=== PATIENT | female | born 1990 | race Two or more races ===

== ENCOUNTER 2022-10-26 21:04 | Emergency (ER) | payer MEDICAID ==
[~2022-10-26] VITALS: Ht 162.6 cm; Wt 109.0 kg
[2022-10-26 23:06] VITALS: BP 127/77
[2022-10-27] MEDS ORDERED: LIDOCAINE 2%HCL (LOCAL ANESTH.) INJ 10ml MDV IJ ONE (00:30)
[2022-10-27] MEDS ORDERED: LIDOCAINE HCL (LOCAL ANESTH.) 0.5 % 50ML MDV IJ ONE (00:30)
[2022-10-27] MEDS ORDERED: LIDOCAINE 1% HCL (LOCAL ANESTH.) INJ 20ML MDV ONE (00:30)
== END 2022-10-27 01:12 | disposition home or self-care (01) ==
LOC: ER 21:04
DX: S61.411A Laceration without foreign body of right hand, initial encounter (principal); W45.8XXA Other foreign body or object entering through skin, initial encounter; Y93.89 Activity, other specified; Y92.89 Other specified places as the place of occurrence of the external cause; Y99.8 Other external cause status
CPT/HCPCS: 12001; 99282; J2001

== ENCOUNTER 2025-04-27 17:31 | Inpatient (IN) | payer MEDICAID ==
[~2025-04-27] VITALS: Ht 162.6 cm; Wt 113.1 kg
--- NOTE | 2025-04-27 18:05 | ED.PDOC ---
GI ASSESSMENT HPI Comments 34-year-old female who comes in with chief complaint of chest pain and abdominal pain. The patient states that the pain is in the epigastric region is started this morning. The pain seems to radiate towards the back and states that the pain is a 10/10. The patient tried going to work and states that the symptoms were so significant so she came to the emergency department's for evaluation. The patient denies any vomiting but is having some nausea. Chief Complaint: Chest Pain Time Seen by MD: 17:32 Reviewed Notes: Nurses Notes, Medications, Allergies (Allergies listed above) Allergies: Coded Allergies: Acetaminophen (Verified Allergy, Unknown, 04/27/25) Hydrocodone (Verified Allergy, Unknown, 04/27/25) Penicillins (Verified Allergy, Unknown, 04/27/25) Information Source: Patient Mode of Arrival: Ambulatory Timing: Hours (Symptoms started this morning) Duration: Since onset Prehospital treatment: None Quality: Cramping, Sharp Vomitus: Bilious, None Stool: Normal Severity: Moderate Recent: None Recent Hx of: None Pain Location: Epigastric Modifying Factors: Nothing Associated sign and symptoms: Nausea, Abdominal Pain Past Medical History PAST MEDICAL HISTORY: Denies Surgical History (Other): Left breast tumor removal MOLD SWABBER History: No Pertinent MOLD SWABBER History Family History Family History: Reviewed,noncontributory to illness Social History Smoker: Non-Smoker Alcohol: Occasionally Drugs: Denies Drug Use Lives In: Home Constitutional: denies: chills, diaphoresis, fatigue, fever, malaise, sweats, weakness, others EENTM: denies: blurred vision, double vision, ear bleeding, ear discharge, ear drainage, ear pain, ear ringing, eye pain, eye redness, hearing loss, mouth pain, mouth swelling, nasal discharge, nose bleeding, nose congestion, nose pain, photophobia, tearing, throat pain, throat swelling, voice changes, others Respiratory: denies: cough, hemoptysis, orthopnea, SOB at rest, shortness of breath, SOB with excertion, stridor, wheezing, others Cardiovascular: denies: chest pain, dizzy spells, diaphoresis, Dyspnea on exertion, edema, irregular heart beat, left arm pain, lightheadedness, palpitations, PND, syncope, others Gastrointestinal: reports: abdominal pain, nausea; denies: abdomen distended, blood streaked bowels, constipated, diarrhea, dysphagia, difficulty swallowing, hematemesis, melena, poor appetite, poor fluid intake, rectal bleeding, rectal pain, vomiting, others Genitourinary: denies: abnormal vagina bleeding, burning, dyspareunia, dysuria, flank pain, frequency, hematuria, incontinence, pain, , vagina discharge, urgency, others Neurological: denies: dizziness, fainting, headache, left sided numbness, left sided weakness, numbness, paresthesia, pre-existing deficit, right sided numbness, right sided weakness, seizure, speech problems, tingling, tremors, weakness, others Musculoskeletal: denies: back pain, gout, joint pain, joint swelling, muscle pain, muscle stiffness, neck pain, others Integumetry: denies: bruises, change in color, change in hair/nails, dryness, laceration, lesions, lumps, rash, wounds, others Allergic/Immunocompromised: denies: Difficulty Healing, Frequent Infections, Hives, Itching, others Hematologic/Lymphatic: denies: anemia, blood clots, easy bleeding, easy bruising, swollen glands, others Endocrine: denies: excessive hunger, excessive sweating, excessive thirst, excessive urination, flushing, intolerance to cold, intolerance to heat, unexplained weight gain, unexplained weight loss, others Psychiatric: denies: anxiety, bipolar disorder, depression, hopeless, panic disorder, schizophrenia, sleepless, suicidal, others Physical Exam General Appearance: Moderate Distress HEENT: Normal ENT Inspection, Pharynx Normal, TMs Normal Neck: Full Range of Motion, Non-Tender, Normal, Normal Inspection Respiratory: Chest Non-Tender, Lungs Clear, No Accessory Muscle Use, No Respiratory Distress, Normal Breath Sounds Cardiovascular: No Edema, No JVD, No Murmur, No Gallop, Normal Peripheral Pulses, Regular Rate/Rhythm Breast Exam: Deferred Gastrointestinal: Epigastric, No Organomegaly, No Pulsatile Mass, Normal Bowel Sounds, Soft, Tenderness Genitalia: Deferred Pelvic: Deferred Rectal: Deferred Extremities: No calf tenderness, Normal capillary refill, Normal inspection, Normal range of motion, Non-tender, No pedal edema Musculoskeletal : Apperance: Normal Neurologic: Alert, kennel manager dog track II-XII nml as Tested, No Motor Deficits, Normal Affect, Normal Mood, No Sensory Deficits Cerebellar Function: Normal Reflexes: Normal Skin: Dry, Normal Color, Warm Lymphatic: No Adenopathy Was a procedure done? Was a procedure done?: No GI differential Dx Differential Diagnosis: Appendicitis, Cholangitis, Cholecystitis, Gastritis/PUD, Gastroenteritis, Inflammatory BD, Ischemic Bowel, Pancreatitis, UTI X-Ray, Labs, Meds, VS Vital Signs Date Time Temp Pulse Resp B/P (MAP) Pulse Ox O2 Delivery O2 Flow Rate FiO2 04/27/25 18:37 83 04/27/25 18:24 88 17 133/91 04/27/25 17:41 98.2 88 17 133/91 98 98.2 04/27/25 17:38 82 Lab Test 04/27/25 18:08 Range/Units White Blood Count 10.7 4.4-10.8 10^3/uL Red Blood Count 4.98 4.0-5.20 10^6/uL Hemoglobin 14.5 12.2-16.2 g/dL Hematocrit 42.2 36.0-46.0 % Mean Corpuscular Volume 84.9 80.0-100.0 fL Mean Corpuscular Hemoglobin 29.1 28.0-32.0 pg Mean Corpuscular Hemoglobin Concent 34.3 32.0-36.0 g/dL Red Cell Distribution Width 14.6 H 11.8-14.3 % Platelet Count 274 140-450 10^3/uL Mean Platelet Volume 10.0 6.9-10.8 fL Neutrophils (%) (Auto) 73.7 37.0-80.0 % Lymphocytes (%) (Auto) 16.2 10.0-50.0 % Monocytes (%) (Auto) 7.9 0.0-12.0 % Eosinophils (%) (Auto) 1.6 0.0-7.0 % Basophils (%) (Auto) 0.6 0.0-2.0 % Neutrophils # (Auto) 7.9 1.6-8.6 10 ^3/uL Lymphocytes # (Auto) 1.7 0.4-5.4 10 ^3/uL Monocytes # (Auto) 0.8 0-1.3 10 ^3/uL Eosinophils # (Auto) 0.2 0-0.8 10 ^3/uL Basophils # (Auto) 0.1 0-0.2 10 ^3/uL Nucleated Red Blood Cells 0.1 % Sodium Level 140 136-145 mmol/L Potassium Level 4.1 3.5-5.1 mmol/L Chloride Level 106 98-107 mmol/L Carbon Dioxide Level 27 20-31 mmol/L Anion Gap 7 5-15 Blood Urea Nitrogen 12 9-23 mg/dL Creatinine 0.84 0.550-1.02 mg/dL Glomerular Filtration Rate Calc 94 >90 mL/min BUN/Creatinine Ratio 14.3 10.0-20.0 Serum Glucose 102 74-106 mg/dL Calcium Level 9.7 8.7-10.4 mg/dL Total Bilirubin 1.2 H 0.2-1.0 mg/dL Aspartate Amino Transferase (AST) 685 H 13-40 U/L Alanine Aminotransferase (ALT) 468 H 7-40 U/L Alkaline Phosphatase 116 46-116 U/L Total Protein 7.7 5.7-8.2 g/dL Albumin 4.8 3.2-4.8 g/dL Lipase 41 12-53 U/L Current Medications Medications (Trade) Dose Ordered Sig/Jose Route Start Time Stop Time Status Last Admin Ondansetron HCl (Zofran) 4 mg ONCE ONCE IV 04/27/25 18:00 04/27/25 18:01 DC 04/27/25 18:24 Sodium Chloride 1,000 ml @ 1,000 mls/hr Q1H ONCE IVB 04/27/25 18:00 04/27/25 18:59 04/27/25 18:24 Morphine Sulfate 4 mg ONCE ONCE IV 04/27/25 18:00 04/27/25 18:01 DC 04/27/25 18:24 Pantoprazole Sodium (Protonix) 40 mg ONCE ONCE IV 04/27/25 18:00 04/27/25 18:01 DC 04/27/25 18:24 IV Hep-Lock is being established The patient was given morphine 4 mg IV push for the pain The patient is given Zofran 4 mg IV push for the nausea The patient was given Protonix 40 mg IV push The patient is also being bolused with normal saline. An ultrasound of the gallbladder will show: IMPRESSION: Cholelithiasis with gallbladder wall thickening. This would be consistent with acute cholecystitis in the correct clinical setting. Diffusely echogenic liver parenchyma. This may be secondary to steatosis or another diffuse hepatic process. Correlate clinically and with liver function tests. The patient is now being admitted at this time Images Reviewed?: Images reviewed and evaluated by me Time of 1ST Reevaluation: 18:05 Reevaluation 1ST: Unchanged Patient Education/Counseling: Diagnosis, Treatment, Prognosis Family Education/Counseling: No Family Present SEPSIS Sepsis Screen Date sepsis recognized/suspect: Apr 27, 2025 Time Sepsis recognized/suspect: 1740 Recent Procedure: No On Antibiotic Therapy: No Respiratory Rate >20: No Heart Rate >90: No Temp<36 C (96.8 F) or >38.3 C: No SBP <90 or MAP <65 mmHG: No New Acute Mental Status Change: No Is the patient on CPAP, BIPAP,: No Physician Orders Urinalysis (04/27/25 17:59) Sodium Chloride 0.9% (04/27/25 18:00) Heplock Iv (04/27/25 17:59) Gallbladder (04/27/25 17:59) Test, Urine (04/27/25 17:59) Vital Signs Date Time Temp Pulse Resp B/P (MAP) Pulse Ox O2 Delivery O2 Flow Rate FiO2 04/27/25 18:37 83 04/27/25 18:24 88 17 133/91 04/27/25 17:41 98.2 88 17 133/91 98 98.2 04/27/25 17:38 82 Laboratory Tests Test 04/27/25 18:08 White Blood Count 10.7 10^3/uL (4.4-10.8) Medications Medications Dose Ordered Sig/Jose Route Start Time Stop Time Status Last Admin Dose Admin Morphine Sulfate 4 mg ONCE ONCE IV 04/27/25 18:00 04/27/25 18:01 DC 04/27/25 18:24 Ondansetron HCl 4 mg ONCE ONCE IV 04/27/25 18:00 04/27/25 18:01 DC 04/27/25 18:24 Pantoprazole Sodium 40 mg ONCE ONCE IV 04/27/25 18:00 04/27/25 18:01 DC 04/27/25 18:24 Sodium Chloride 1,000 ml @ 1,000 mls/hr Q1H ONCE IVB 04/27/25 18:00 04/27/25 18:59 04/27/25 18:24 Departure 1 Departure Time of Disposition: 18:57 Impression: Primary Impression: Acute cholecystitis Additional Impression: Intractable abdominal pain Disposition: 09 ADMITTED INPATIENT Admit to: Med Surg Condition: Fair Critical Care Note Critical Care Time?: No Stability Stability form required: Yes Unstable for transfer: ED Physician Assesment (Clinical assesment) Heart Score Heart Score: Heart Score Response (Comments) Value History N/A 0 EKG N/A 0 Age N/A 0 Risk Factors N/A 0 Troponin N/A 0 Total 0 PRIYA LAZO MD Apr 27, 2025 18:05
[2025-04-27] MEDS: MORPHINE SULFATE 4 MG/ML SYR/VIAL IV ONE (18:24)
[2025-04-27] MEDS: ONDANSETRON HCL 4 MG/2 ML VIAL IV ONE (18:24)
[2025-04-27] MEDS: PANTOPRAZOLE 40 MG/10 ML VIAL INJ IV ONE (18:24)
[2025-04-27] MEDS: SODIUM CHLORIDE 0.9% 1,000 ML IVB ONE (18:24)
[2025-04-27 18:25] LABS: Hematocrit 42.2 % (36.0-46.0); Hemoglobin 14.5 g/dL (12.2-16.2); Mean Corpuscular Hemoglobin 29.1 pg (28.0-32.0); Mean Corpuscular Volume 84.9 fL (80.0-100.0); Nucleated Red Blood Cells % 0.1 %
--- NOTE | 2025-04-27 18:40 | ECG ---
[facility] Test Date: 2025-04-27 Test Time: 17:38:11 Pat Name: MARIA VICTORIA GALLARDO Department: [facility] ED Room: [address] [place] [address] Gender: F Hospice Fellow: ana cristina : 1990 Requested By: PRIYA LAZO Order Number: [id number] Reading MD: Srikanth Payton Measurements Intervals [place] Rate: 82 P: 35 [place]: 170 QRS: 147 QRSD: 108 T: 22 QT: 370 QTc: 432 Interpretive Statements Sinus rhythm Right axis deviation Electronically Signed On 04-28-2025 17:54:02 PDT by Srikanth Payton Please click the below link to view image of tracing.
[2025-04-27 18:44] LABS: Albumin 4.8 g/dL (3.2-4.8); Alkaline Phosphatase 116 U/L (46-116); Anion Gap 7 (5-15); BUN/Creatinine Ratio 14.3 (10.0-20.0); Bilirubin, Total 1.2 mg/dL (0.2-1.0); Blood Urea Nitrogen 12 mg/dL (9-23); Calcium 9.7 mg/dL (8.7-10.4); Carbon Dioxide 27 mmol/L (20-31); Chloride 106 mmol/L (98-107); Glucose 102 mg/dL (74-106); Lipase 41 U/L (12-53); Potassium 4.1 mmol/L (3.5-5.1); Sodium 140 mmol/L (136-145); Total Protein 7.7 g/dL (5.7-8.2)
--- NOTE | 2025-04-27 18:44 | DVH ---
ULTRASOUND ABDOMEN, LIMITED RIGHT UPPER QUADRANT: REASON FOR EXAM: pain TECHNIQUE: Real-time sector scans in the transverse and longitudinal planes were obtained through th e right upper quadrant of the abdomen. FINDINGS: The liver is of normal size and contour. The liver is diffusely echogenic. There is hepato petal flow in the portal vein. There is no intrahepatic nor extrahepatic biliary ductal dilatation. The common bile duct measures 3 mm. The gallbladder contains numerous shadowing stones. The gallbl adder wall appears thickened at 7 mm. There is no sonographic Hoffmann's sign. The pancreas is not well seen due to overlying bowel gas. The right kidney measures 11.5 cm. No hydronephrosis or nephrolithiasis is identified. There is no evidence of right renal mass or cyst. The visualized portions of the abdominal aorta demonstrate no evidence of aneurysmal dilatation. The visualized inferior vena cava is unremarkable. There is no free fluid identified in the right upper quadrant. IMPRESSION: Cholelithiasis with gallbladder wall thickening. This would be consistent with acute cholecystitis in the correct clinical setting. Diffusely echogenic liver parenchyma. This may be secondary to steatosis or another diffuse hepatic p rocess. Correlate clinically and with liver function tests.
[2025-04-27 18:48] LABS: Alanine Aminotransferase 468 U/L (7-40)
[2025-04-27 20:56] LABS: INR 0.96 (0.9-1.15); Partial Thromboplastin Time 25.6 SEC (24.5-34.5); Prothrombin Time 10.2 sec (9.3-11.8)
[2025-04-27] MEDS: SODIUM CHLORIDE 0.9% 1,000 ML IV ONE (21:00)
[2025-04-27] MEDS: cefTRIAXone 1GM/50ML D5W 50 ML IV ONE (21:52)
--- NOTE | 2025-04-27 22:04 | DVHHP2 ---
History of Present Illness Reason for Visit: Abdominal pain History of Present Illness 34-year-old female presents for evaluation of abdominal pain. Patient endorses a one day history of epigastric sharp abdominal pain that radiates to her back. Denies nausea or vomiting. No fever or chills. Past Medical History Denies Past Surgical History Breast tumor removal Family History Noncontributory Smoke: No ALCOHOL: occassional Drugs: None Lives: with Family Review of Systems Review of Systems Review of systems are currently negative otherwise addressed in HPI. Allergies: Coded Allergies: Acetaminophen (Verified Allergy, Unknown, 04/27/25) Hydrocodone (Verified Allergy, Unknown, 04/27/25) Penicillins (Verified Allergy, Unknown, 04/27/25) Medications Current Medications Medications Dose Ordered Sig/Jose Route Start Time Stop Time Status Last Admin Dose Admin Pantoprazole Sodium 40 mg DAILY IV 04/28/25 10:00 Ondansetron HCl 4 mg Q4HP PRN IV 04/27/25 20:00 Morphine Sulfate 2 mg Q4HPRN PRN IV 04/27/25 20:00 Ceftriaxone Sodium 50 ml @ 100 mls/hr DAILY@09 IV 04/28/25 09:00 Metronidazole 100 ml @ 100 mls/hr Q8HR IV 04/27/25 22:00 Exam Vital Signs Vital Signs Date Time Temp Pulse Resp B/P (MAP) Pulse Ox O2 Delivery O2 Flow Rate FiO2 04/27/25 18:37 83 04/27/25 18:24 17 133/91 04/27/25 17:41 98.2 98 98.2 Exam Gen: 34-year-old female in mild distress Skin: Warm, dry, normal color and texture, no rash. HEENT: Normocephalic atraumatic, mucous membranes moist and pink. Neck: Cervical and supraclavicular nodes normal without enlargement, trachea is midline, thyroid gland is normal without masses. Pulmonary: Clear to auscultation and percussion bilaterally. Cardiac: Regular rate and rhythm. No murmur Abdomen: Soft, nontender, nondistended, bowel sounds present all 4 quadrants, no guarding, no rigidity, no organomegaly. Extremities: No cyanosis, clubbing, no edema Neuro: Cranial nerves II through XII grossly intact, normal affect and speech, no focal motor deficits. Labs/Xrays Labs Test 04/27/25 18:08 Range/Units White Blood Count 10.7 4.4-10.8 10^3/uL Red Blood Count 4.98 4.0-5.20 10^6/uL Hemoglobin 14.5 12.2-16.2 g/dL Hematocrit 42.2 36.0-46.0 % Mean Corpuscular Volume 84.9 80.0-100.0 fL Mean Corpuscular Hemoglobin 29.1 28.0-32.0 pg Mean Corpuscular Hemoglobin Concent 34.3 32.0-36.0 g/dL Red Cell Distribution Width 14.6 H 11.8-14.3 % Platelet Count 274 140-450 10^3/uL Mean Platelet Volume 10.0 6.9-10.8 fL Neutrophils (%) (Auto) 73.7 37.0-80.0 % Lymphocytes (%) (Auto) 16.2 10.0-50.0 % Monocytes (%) (Auto) 7.9 0.0-12.0 % Eosinophils (%) (Auto) 1.6 0.0-7.0 % Basophils (%) (Auto) 0.6 0.0-2.0 % Neutrophils # (Auto) 7.9 1.6-8.6 10 ^3/uL Lymphocytes # (Auto) 1.7 0.4-5.4 10 ^3/uL Monocytes # (Auto) 0.8 0-1.3 10 ^3/uL Eosinophils # (Auto) 0.2 0-0.8 10 ^3/uL Basophils # (Auto) 0.1 0-0.2 10 ^3/uL Nucleated Red Blood Cells 0.1 % Prothrombin Time 10.2 9.3-11.8 sec Prothrombin Time INR 0.96 0.9-1.15 Activated Partial Thromboplast Time 25.6 24.5-34.5 SEC Sodium Level 140 136-145 mmol/L Potassium Level 4.1 3.5-5.1 mmol/L Chloride Level 106 98-107 mmol/L Carbon Dioxide Level 27 20-31 mmol/L Anion Gap 7 5-15 Blood Urea Nitrogen 12 9-23 mg/dL Creatinine 0.84 0.550-1.02 mg/dL Glomerular Filtration Rate Calc 94 >90 mL/min BUN/Creatinine Ratio 14.3 10.0-20.0 Serum Glucose 102 74-106 mg/dL Calcium Level 9.7 8.7-10.4 mg/dL Total Bilirubin 1.2 H 0.2-1.0 mg/dL Aspartate Amino Transferase (AST) 685 H 13-40 U/L Alanine Aminotransferase (ALT) 468 H 7-40 U/L Alkaline Phosphatase 116 46-116 U/L Total Protein 7.7 5.7-8.2 g/dL Albumin 4.8 3.2-4.8 g/dL Lipase 41 12-53 U/L SEPSIS Sepsis Screen Date sepsis recognized/suspect: Apr 27, 2025 Time Sepsis recognized/suspect: 1740 Recent Procedure: No On Antibiotic Therapy: No Respiratory Rate >20: No Heart Rate >90: No Temp<36 C (96.8 F) or >38.3 C: No SBP <90 or MAP <65 mmHG: No New Acute Mental Status Change: No Is the patient on CPAP, BIPAP,: No Physician Orders Urinalysis (04/27/25 17:59) Heplock Iv (04/27/25 17:59) Gallbladder (04/27/25 17:59) Test, Urine (04/27/25 17:59) Admit (04/27/25 19:56) Pantoprazole (Protonix) (04/28/25 10:00) * Surgical Consult (04/27/25 ) Sodium Chloride 0.9% (04/27/25 20:00) Basic Metabolic Panel (04/28/25 04:00) Chest Xray 1 View (04/27/25 19:59) Ondansetron Hcl (Zofran) (04/27/25 20:00) Complete Blood Count (04/28/25 04:00) Npo (Nothing By Mouth) Diet (04/28/25 Breakfast) Condition: Stable (04/27/25 19:59) Bedrest With Bathroom Privileg (04/27/25 19:59) Morphine Sulfate Injection (04/27/25 20:00) Ceftriaxone 1gm/50ml D5w (Rocephin) (04/28/25 09:00) Metronidazole 500mg/100ml (Flagyl 500mg/ (04/27/25 22:00) Vital Signs Date Time Temp Pulse Resp B/P (MAP) Pulse Ox O2 Delivery O2 Flow Rate FiO2 04/27/25 18:37 83 7/29/25 18:24 88 17 133/91 04/27/25 17:41 98.2 88 17 133/91 98 98.2 04/27/25 17:38 82 Laboratory Tests Test 04/27/25 18:08 White Blood Count 10.7 10^3/uL (4.4-10.8) Medications Medications Dose Ordered Sig/Jose Route Start Time Stop Time Status Last Admin Dose Admin Morphine Sulfate 4 mg ONCE ONCE IV 04/27/25 18:00 04/27/25 18:01 DC 04/27/25 18:24 4 MG Ondansetron HCl 4 mg ONCE ONCE IV 04/27/25 18:00 04/27/25 18:01 DC 04/27/25 18:24 4 MG Pantoprazole Sodium 40 mg ONCE ONCE IV 04/27/25 18:00 04/27/25 18:01 DC 04/27/25 18:24 40 MG Sodium Chloride 1,000 ml @ 1,000 mls/hr Q1H ONCE IVB 04/27/25 18:00 04/27/25 18:59 DC 04/27/25 18:24 1,000 MLS/HR Assessment/Plan Assessment/Plan Assessment Acute abdominal pain Acute cholecystitis Plan Admit the patient to [facility] to the hospitalist Surgical consult [place] Pain management NPO Continue treatment per orders. Plan discussed with: Patient My Orders Orders - ANDERSENGURMEET RAMIREZ Procedure Category Date Status Time Admit ADMIT 04/27/25 Transmitted 19:56 Pantoprazole PHA 04/28/25 In Process (Protonix) 10:00 * Surgical Consult CONS 04/27/25 Transmitted Sodium Chloride 0.9% PHA 04/27/25 In Process 20:00 Basic Metabolic Panel LAB 04/28/25 Verified 04:00 Chest Xray 1 View XY 04/27/25 Logged 19:59 Ondansetron Hcl PHA 04/27/25 In Process (Zofran) 20:00 Complete Blood Count LAB 04/28/25 Verified 04:00 Npo (Nothing By DIET 04/28/25 Transmitted Mouth) Diet Breakfast Condition: Stable PHILIPPE 04/27/25 In Process 19:59 Bedrest With Bathroom PHILIPPE 04/27/25 In Process Privileg 19:59 Morphine Sulfate PHA 7/29/25 In Process Injection 20:00 Ceftriaxone 1gm/50ml PHA 04/28/25 In Process D5w (Rocephin) 09:00 Metronidazole PHA 04/27/25 In Process 500mg/100ml (Flagyl 22:00 Date of Service: Apr 27, 2025 Billing Provider: GURMEET ANDERSEN Common Visit Codes: [id number] INP/OBS CARE (HIGH) GURMEET ANDERSEN Apr 27, 2025 22:04
--- NOTE | 2025-04-28 00:21 | DVH ---
CHEST RADIOGRAPH Indication: preop Technique: Single frontal view of the chest was obtained COMPARISON: None FINDINGS: Lines and Tubes: None Lungs: Clear Pleura: No effusion. No pneumothorax. Cardiomediastinal contours: Unremarkable Bones: Unremarkable IMPRESSION: 1. No acute disease.
[2025-04-28 01:59] VITALS: RESP 18
[2025-04-28 05:00] VITALS: BP 165/80; PULSE 50; RESP 18; TEMP 97.6; O2SAT 98
[2025-04-28 05:59] LABS: Hematocrit 40.2 % (36.0-46.0); Hemoglobin 13.6 g/dL (12.2-16.2); Mean Corpuscular Hemoglobin 29.1 pg (28.0-32.0); Mean Corpuscular Volume 86.1 fL (80.0-100.0); Nucleated Red Blood Cells % 0.1 %
[2025-04-28 06:15] LABS: Chloride 106 mmol/L (98-107); Potassium 4.2 mmol/L (3.5-5.1); Sodium 140 mmol/L (136-145)
[2025-04-28 06:16] LABS: Anion Gap 7 (5-15); Calcium 9.2 mg/dL (8.7-10.4); Carbon Dioxide 27 mmol/L (20-31)
[2025-04-28 06:21] LABS: BUN/Creatinine Ratio 12.5 (10.0-20.0); Blood Urea Nitrogen 10 mg/dL (9-23); Glucose 97 mg/dL (74-106)
[2025-04-28 07:35] LABS: Urine Protein, UAD Negative (Negative)
[2025-04-28] MEDS: PANTOPRAZOLE 40 MG/10 ML VIAL INJ IV SCH (07:47)
[2025-04-28] MEDS: cefTRIAXone 1GM/50ML D5W 50 ML IV SCH (07:48)
[2025-04-28] MEDS: MORPHINE SULFATE INJ 2 MG/ml SYRG IV PRN (07:49)
--- NOTE | 2025-04-28 12:44 | DVHINCON2 ---
Date of service: Apr 28, 2025 Reason for Consultation cholecystitis History of Present Illness History Source: Patient, RN Notes, MD Notes Exam Limitations: No limitations HPI 34 year old female with complaint of epigastric pain which she states radiates all the way around to her back. patient has been experiencing since yesterday associated with nausea. Denies fever or chills Chief Complaint of Abdominal/F: Abdominal pain, Nausea Quality of Abd/Flank Pain: Sharpness Location of Abdominal Onset: Epigastric Abdominal Pain Radiation: Back Past Medical History Cardiac: No pertinent Hx Pulmonary: No pertinent Hx Central Nervous System: No pertinent Hx GI: No pertinent Hx Hemotology/Oncology: No pertinent Hx Hepatobiliary: No pertinent Hx Psychiatric: No pertinent Hx Musculoskeletal: No pertinent Hx Rheumotologic: No pertinent Hx Infectious Disease: No peritnent Hx ENT: No pertinent Hx Renal/: No pertinent Hx Endocrine: No pertinent Hx Dermatology: No pertinent Hx Others Breast tumor removal Patient Family History: Cervical cancer Colon cancer Diabetes mellitus Grandfather Lung cancer Smoker: No Hx (Negative) Alocohol: None Drugs: None Lives with: With family Review of Systems Constitutional: No symptom reported Ears, Nose, & Throat: No symptom reported Eyes: No symptom reported Pulmonary/Respiratory: No symptom reported Cardiovascular: No symptom reported Gastrointestinal: Nausea, Abdominal Pain Genitourinary: No symptom reported Musculoskeletal: No symptom reported Skin: No symptom reported Psychiatric: No symptom reported Endocrine: No symptom reported Hemotologic/Lymphatic: No symptom reported H&P Exam Vital Signs Vital Signs Date Time Temp Pulse Resp B/P (MAP) Pulse Ox O2 Delivery O2 Flow Rate FiO2 04/28/25 11:30 69 18 130/74 04/28/25 05:00 97.6 98 97.6 04/28/25 01:59 Room Air* 0 21 General Appeara: Well developed, Well nourished, Obese Head Exam: Normal inspection Neck Exam: Normal inspection Eye Exam: bilateral eye Normal inspection, bilateral eye PERRL Nasal Exam: Normal inspection Mouth: Normal Inspection Pulmonary/Respiratory: Normal inspection Cardiovascular/Chest: Normal inspection Abdominal Exam: Normal bowel sounds, Soft Abdominal Pain Onset Location: Epigastric Neuro/Mental St: Alert, Oriented Appearance: Appropriate appearance Eye contact/ Speech: Cooperative, Good eye contact, Normal speech Thoughts/Psych: Normal thought pattern Skin Exam: Normal inspection, Normal color, Warm/dry Labs/Xrays Labs Test 7/30/25 06:00 04/28/25 05:00 04/27/25 18:08 Range/Units Urine Color Yellow Yellow Urine Clarity Turbid H Clear Urine pH 5.5 5.0-9.0 Urine Specific [place] 1.019 1.001-1.035 Urine Protein Negative Negative Urine Ketones Negative Negative Urine Blood Negative Negative /uL Urine Nitrite Negative Negative Urine Bilirubin Positive Negative Urine Urobilinogen 2 H Negative mg/dL Urine Leukocyte Esterase 3+ Negative /uL Urine RBC 3 0 - 4 /hpf Urine Microscopic WBC 34 H 0-5 /HPF Urine Squamous Epithelial Cells Few <5 /hpf Urine Bacteria Few H None Seen /hpf Urine Mucus Few None Seen Urine Glucose Normal Normal mg/dL Urine Test Negative Negative White Blood Count 7.1 # 4.4-10.8 10^3/uL Red Blood Count 4.67 4.0-5.20 10^6/uL Hemoglobin 13.6 12.2-16.2 g/dL Hematocrit 40.2 36.0-46.0 % Mean Corpuscular Volume 86.1 80.0-100.0 fL Mean Corpuscular Hemoglobin 29.1 28.0-32.0 pg Mean Corpuscular Hemoglobin Concent 33.8 32.0-36.0 g/dL Red Cell Distribution Width 14.6 H 11.8-14.3 % Platelet Count 251 140-450 10^3/uL Mean Platelet Volume 10.0 6.9-10.8 fL Neutrophils (%) (Auto) 70.6 37.0-80.0 % Lymphocytes (%) (Auto) 17.4 10.0-50.0 % Monocytes (%) (Auto) 8.4 0.0-12.0 % Eosinophils (%) (Auto) 3.1 0.0-7.0 % Basophils (%) (Auto) 0.5 0.0-2.0 % Neutrophils # (Auto) 5.0 1.6-8.6 10 ^3/uL Lymphocytes # (Auto) 1.2 0.4-5.4 10 ^3/uL Monocytes # (Auto) 0.6 0-1.3 10 ^3/uL Eosinophils # (Auto) 0.2 0-0.8 10 ^3/uL Basophils # (Auto) 0 0-0.2 10 ^3/uL Nucleated Red Blood Cells 0.1 % Sodium Level 140 136-145 mmol/L Potassium Level 4.2 3.5-5.1 mmol/L Chloride Level 106 98-107 mmol/L Carbon Dioxide Level 27 20-31 mmol/L Anion Gap 7 5-15 Blood Urea Nitrogen 10 9-23 mg/dL Creatinine 0.80 0.550-1.02 mg/dL Glomerular Filtration Rate Calc 100 >90 mL/min BUN/Creatinine Ratio 12.5 10.0-20.0 Serum Glucose 97 74-106 mg/dL Calcium Level 9.2 8.7-10.4 mg/dL Prothrombin Time 10.2 9.3-11.8 sec Prothrombin Time INR 0.96 0.9-1.15 Activated Partial Thromboplast Time 25.6 24.5-34.5 SEC Total Bilirubin 1.2 H 0.2-1.0 mg/dL Aspartate Amino Transferase (AST) 685 H 13-40 U/L Alanine Aminotransferase (ALT) 468 H 7-40 U/L Alkaline Phosphatase 116 46-116 U/L Total Protein 7.7 5.7-8.2 g/dL Albumin 4.8 3.2-4.8 g/dL Lipase 41 12-53 U/L Assessment/Plan Problem List: (1) Acute cholecystitis Primary Diagnosis acute cholecystitis, cholelithiasis Plan patient complaint of abdominal pain which radiates to her back since yesterday RUQ tender to palpation Ultrasound report:Cholelithiasis with gallbladder wall thickening. This would be consistent with acute cholecystitis in the correct clinical setting. Plan: amylase Laparoscopic possibly open cholecystectomy tomorrow am NPO Plan discussed with: Patient, Other (Dr. arteaga ) Visit Coding Surgery Date of Service if different f: Apr 28, 2025 Billing Provider: DIAN ARTEAGA MD Surgery Visit Codes: [id number] INP/OBS CARE(HIGH) JENNIFER SIMPSON CROSSBOW MAKER Apr 28, 2025 12:44
[2025-04-28] MEDS ORDERED: ACETAMINOPHEN 325 MG TAB PO PRN (12:45)
[2025-04-28] MEDS ORDERED: HYDROcodone-ACET 5/325MG TAB PO PRN (12:45)
--- NOTE | 2025-04-28 12:45 | DVHPN2 ---
Progress Note Date Seen: Apr 28, 2025 Medical Necessity Reason Pt with a Central, PICC or Fol: No Subjective Patient reports: No new complaints Review of Systems: HEENT:Normal, CVS:Normal, RESPIRATORY:Normal, GI:Normal, :Normal, MSK:Normal, NEURO:Normal Objective vital signs Vital Sign Date Time Temp Pulse Resp B/P (MAP) Pulse Ox O2 Delivery O2 Flow Rate FiO2 04/28/25 11:30 69 18 130/74 04/28/25 05:00 97.6 98 97.6 04/28/25 01:59 Room Air* 0 21 Total Intake and Output 04/27/25 04/27/25 04/28/25 15:00 23:00 07:00 Intake Total 1150 ml 600 ml Balance 1150 ml 600 ml medications Current Medications Medications Dose Ordered Sig/Jose Route Start Time Stop Time Status Last Admin Dose Admin Pantoprazole Sodium 40 mg DAILY IV 04/28/25 10:00 04/28/25 07:47 40 MG Ondansetron HCl 4 mg Q4HP PRN IV 04/27/25 20:00 Morphine Sulfate 2 mg Q4HPRN PRN IV 04/27/25 20:00 04/28/25 07:49 2 MG Ceftriaxone Sodium 50 ml @ 100 mls/hr DAILY@09 IV 04/28/25 09:00 04/28/25 07:48 100 MLS/HR Metronidazole 100 ml @ 100 mls/hr Q8HR IV 04/27/25 22:00 04/28/25 05:05 100 MLS/HR Examination: GENERAL:Normal, HEENT:Normal, NECK:Normal, LUNGS:Normal, CVS:Normal, ABDOMEN:Normal, MSK:Normal, SKIN:Normal, NEURO:Normal, :Normal laboratory and microbiology Laboratory Tests 04/28/25 05:00 Test 04/28/25 05:00 Range/Units Serum Glucose 97 74-106 mg/dL Problem List/Assessment/Plan Problem List/Assessment/Plan #1 gallstones with acute maria e: ivf pain, surg in am, iv antibiotics #2 uti: iv antibiotics #3 morbid obesity Plan discussed with: Patient Date of Service: Apr 28, 2025 Billing Provider: GURMEET BERNSTEIN MD Common Visit Codes: [id number] INP/OBS CARE(HIGH) GURMEET BERNSTEIN MD Apr 28, 2025 12:45
[2025-04-28 17:58] VITALS: BP 119/82; PULSE 69; RESP 16; TEMP 98.2; O2SAT 99
[2025-04-28 20:00] VITALS: PULSE 66; RESP 18; O2SAT 90
[2025-04-28 21:00] VITALS: BP 121/62; PULSE 66; RESP 18; TEMP 97.8; O2SAT 94
[2025-04-28] MEDS: ONDANSETRON HCL 4 MG/2 ML VIAL IV PRN (22:36)
[2025-04-29] VITALS (8 sets, daily range): BP systolic 102–120; BP diastolic 44–73; PULSE 65–78; RESP 16–22; TEMP 97.3–98.2; O2SAT 90–100
[2025-04-29 07:28] LABS: Hematocrit 39.3 % (36.0-46.0); Hemoglobin 13.1 g/dL (12.2-16.2); Mean Corpuscular Hemoglobin 28.9 pg (28.0-32.0); Mean Corpuscular Volume 86.8 fL (80.0-100.0); Nucleated Red Blood Cells % 0.0 %
[2025-04-29 07:40] LABS: Alanine Aminotransferase 450 U/L (7-40); Albumin 4.1 g/dL (3.2-4.8); Alkaline Phosphatase 122 U/L (46-116); Anion Gap 7 (5-15); BUN/Creatinine Ratio 10.5 (10.0-20.0); Bilirubin, Total 0.8 mg/dL (0.2-1.0); Blood Urea Nitrogen 9 mg/dL (9-23); Calcium 9.5 mg/dL (8.7-10.4); Carbon Dioxide 26 mmol/L (20-31); Chloride 107 mmol/L (98-107); Glucose 91 mg/dL (74-106); Potassium 4.5 mmol/L (3.5-5.1); Sodium 140 mmol/L (136-145); Total Protein 6.7 g/dL (5.7-8.2)
[2025-04-29] MEDS ORDERED: ROCURONIUM 10MG/ML 10ML VIAL IV ONE (09:09)
[2025-04-29] MEDS ORDERED: LIDOCAINE 2% (LOCAL ANESTH.) PF 5ml SDV ONE (09:09)
[2025-04-29] MEDS ORDERED: PROPOFOL 10 MG/ML 20 ML IV ONE (09:09)
[2025-04-29] MEDS ORDERED: ONDANSETRON HCL 4 MG/2 ML VIAL ONE (09:09)
[2025-04-29] MEDS ORDERED: KETOROLAC TROMETH 30 MG/ML 1ML VIAL ONE (09:09)
[2025-04-29] MEDS ORDERED: SUGAMMADEX 200mg/2ml Vial (100MG/ML) IV ONE (09:09)
[2025-04-29] MEDS ORDERED: GLYCOPYRROLATE 0.2 MG/ML 1ML VIAL ONE (09:09)
[2025-04-29] MEDS ORDERED: KETAMINE 50mg/ML 1ml syringe ONE (09:12)
[2025-04-29] MEDS ORDERED: fentaNYL CITRATE 100 MCG/2 ML VL ONE (09:12)
--- NOTE | 2025-04-29 10:32 | DVHPN2 ---
Progress Note Date Seen: Apr 29, 2025 Medical Necessity Reason Pt with a Central, PICC or Fol: No Subjective Patient reports: No new complaints Review of Systems: HEENT:Normal, CVS:Normal, RESPIRATORY:Normal, GI:Normal, :Normal, MSK:Normal, NEURO:Normal Objective vital signs Vital Sign Date Time Temp Pulse Resp B/P (MAP) Pulse Ox O2 Delivery O2 Flow Rate FiO2 04/29/25 09:50 98.2 72 16 112/56 (74) 100 98.2 04/28/25 20:00 Room Air* 0 21 Total Intake and Output 04/28/25 04/28/25 04/29/25 15:00 23:00 07:00 Intake Total 720 ml 580 ml Balance 720 ml 580 ml medications Current Medications Medications Dose Ordered Sig/Jose Route Start Time Stop Time Status Last Admin Dose Admin Pantoprazole Sodium 40 mg DAILY IV 04/28/25 10:00 04/28/25 07:47 40 MG Ondansetron HCl 4 mg Q4HP PRN IV 04/27/25 20:00 04/28/25 22:36 4 MG Morphine Sulfate 2 mg Q4HPRN PRN IV 04/27/25 20:00 04/28/25 22:37 2 MG Ceftriaxone Sodium 50 ml @ 100 mls/hr DAILY@09 IV 04/28/25 09:00 04/29/25 09:05 100 MLS/HR Metronidazole 100 ml @ 100 mls/hr Q8HR IV 04/27/25 22:00 04/28/25 22:54 100 MLS/HR Acetaminophen/ Hydrocodone Bitart 1 tab Q6HPRN PRN PO 04/28/25 12:45 UNV Acetaminophen 650 mg Q6HP PRN PO 04/28/25 12:45 UNV Examination: GENERAL:Normal, HEENT:Normal, NECK:Normal, LUNGS:Normal, CVS:Normal, ABDOMEN:Normal, MSK:Normal, SKIN:Normal, NEURO:Normal, :Normal laboratory and microbiology Laboratory Tests 04/29/25 06:11 Test 04/29/25 06:11 Range/Units Serum Glucose 91 74-106 mg/dL Problem List/Assessment/Plan Problem List/Assessment/Plan #1 gallstones with acute maria e: ivf pain, surg today, iv antibiotics #2 uti: iv antibiotics #3 morbid obesity Plan discussed with: Other (rn) My Orders My Orders Orders - GURMEET BERNSTEIN MD Procedure Category Date Status Time Npo (Nothing By DIET 04/29/25 Transmitted Mouth) Diet Breakfast Complete Blood Count LAB 04/30/25 Verified 06:00 Comprehensive LAB 04/30/25 Verified Metabolic Panel 06:00 NS PHA 04/29/25 Transmitted 10:30 Date of Service: Apr 29, 2025 Billing Provider: GURMEET BERNSTEIN MD Common Visit Codes: [id number] INP/OBS CARE(HIGH) GURMEET BERNSTEIN MD Apr 29, 2025 10:31
[2025-04-29] MEDS: CELECOXIB 100 MG CAP PO ONE (11:00)
[2025-04-29] MEDS: GABAPENTIN 300 MG CAP PO ONE (11:00)
[2025-04-29] MEDS: ACETAMINOPHEN IV 1000 MG/100ML (10MG/ML) IV ONE (11:00)
[2025-04-29] MEDS: BUPIVACAINE HCL 0.25% P/F 10 ML VIAL ONE (11:56)
[2025-04-29] MEDS: LIDOCAINE W/ EPINEPHRINE 1% 20ML VIAL ONE (11:57)
[2025-04-29] MEDS ORDERED: hydrALAZINE HCL 20 MG/ML VL IV PRN (12:45)
[2025-04-29] MEDS ORDERED: NALOXONE HCL 0.4 MG/ML VIAL IV PRN (12:45)
[2025-04-29] MEDS ORDERED: HYDROmorphone HCL 2 MG/ML VL/or syr IV PRN (12:45)
[2025-04-29] MEDS ORDERED: FLUMAZENIL 0.1 MG/ML INJ 10ML MDV IV PRN (12:45)
[2025-04-29] MEDS: fentaNYL CITRATE 100 MCG/2 ML VL IV PRN (13:09)
--- NOTE | 2025-04-29 13:16 | DVHOP ---
DATE OF SURGERY: 04/29/2025 PREOPERATIVE DIAGNOSES: * Cholelithiasis. * Cholecystitis. POSTOPERATIVE DIAGNOSES: * Cholelithiasis. * Cholecystitis. SURGEON: Kevin Mark MD BRAKE LININGS COATER: Stan Arellano NP ANESTHESIA: General endotracheal. ANESTHESIOLOGIST: Dean López. PROCEDURES: * Laparoscopy. * Laparoscopic cholecystectomy. DESCRIPTION OF PROCEDURE: Under general endotracheal anesthesia with the patient's skin prepped and draped, a supraumbilical incision was made and a Veress needle inserted by the hanging drop technique to establish pneumoperitoneum to 15 mmHg pressure by insufflation with carbon dioxide. With the abdomen fully distended, the needle was replaced with a 5 mm trocar port through which a 0-degree viewing laparoscope was inserted and under direct vision, 5 and 10 mm ports were inserted through the abdominal wall. The 5 mm port right lateral abdomen at the level of the umbilicus and the 10 mm port in the subxiphoid midline skin. The patient's instrumentation was inserted and a laparoscopy ensued demonstrating a gallbladder that was markedly dilated, affected with adhesions from the omentum as well as the transverse colon. Lysis of these adhesions was accomplished. The gallbladder was then placed on tension and the cystic duct, which was exceedingly convoluted and covered with veils of inflammatory tissue, was thoroughly dissected out and circumferentially dissected and skeletonized. It was traced to the confluence with the hepatic duct and very carefully isolated in order to avoid injury to the common bile duct. The cystic artery was similarly skeletonized, traced into the hepatocystic triangle so as to minimize the potential for an inadvertent injury to the right hepatic artery. Following division of the cystic duct and cystic artery, the gallbladder was resected from its liver bed by electrocautery and traction. Prior to this, the gallbladder had to be aspirated of bile, which was sent for cultures and sensitivities. With a fully mobilized gallbladder, the gallbladder was removed from the peritoneal cavity. The subhepatic space was irrigated and it was aspirated. Due to the profuse nature of dissection around the gallbladder, the patient's right upper quadrant was drained by means of a 10 mm Moshe-Ramos drain, which was inserted underneath the right lobe of the liver and exteriorized through the right flank 5 mm port site, secured with a 2-0 nylon suture. Having inspected, hemostasis was found to be complete in the liver bed as well as the port sites. Instrumentation was withdrawn. Pneumoperitoneum was evacuated. The fascial defect was closed using 0 Vicryl. The wounds were approximated using Monocryl suture, Dermabond glue and Steri-Strips. The patient remained stable throughout the procedure, left the operating room following an accurate needle and sponge count. Her fiance was thoroughly informed by phone. MD FERMIN Clemens/TRAVIS TID: [id number] RECEIPT: [id number]
[2025-04-29] MEDS: ceFAZolin 1GM VL ONE (13:18)
[2025-04-29] MEDS: ACETAMINOPHEN IV 100 ML IV ONE (13:18)
[2025-04-29] MEDS: LIDOCAINE 2%HCL (LOCAL ANESTH.) INJ 10ml MDV ONE (13:19)
[2025-04-29] MEDS: ONDANSETRON HCL 4 MG/2 ML VIAL IV PRN (13:24)
[2025-04-29] MEDS: METOCLOPRAMIDE HCL 5MG/ml INJ 2ml VIAL IV ONE ×2 (14:07→14:15)
[2025-04-29] MEDS: METOCLOPRAMIDE HCL 5MG/ml INJ 2ml VIAL ONE (14:09)
[2025-04-29] MEDS: D5W/SOD CHL 0.45%/KCL 20MEQ 1,000 ML IV SCH (14:57)
[2025-04-29] MEDS: SODIUM CHLORIDE 0.9% 1,000 ML IV SCH (16:54)
[2025-04-30] VITALS (7 sets, daily range): BP systolic 110–137; BP diastolic 64–83; PULSE 59–78; RESP 17–20; TEMP 97.6–98.7; O2SAT 95–97
[2025-04-30 06:39] LABS: Hematocrit 36.0 % (36.0-46.0); Hemoglobin 12.2 g/dL (12.2-16.2); Mean Corpuscular Hemoglobin 29.1 pg (28.0-32.0); Mean Corpuscular Volume 86.2 fL (80.0-100.0); Nucleated Red Blood Cells % 0.0 %
[2025-04-30 06:57] LABS: Albumin 4.2 g/dL (3.2-4.8); Anion Gap 9 (5-15); BUN/Creatinine Ratio 8.1 (10.0-20.0); Calcium 9.7 mg/dL (8.7-10.4); Carbon Dioxide 24 mmol/L (20-31); Potassium 4.2 mmol/L (3.5-5.1); Sodium 141 mmol/L (136-145); Total Protein 6.7 g/dL (5.7-8.2)
[2025-04-30 06:58] LABS: Alanine Aminotransferase 497 U/L (7-40); Alkaline Phosphatase 140 U/L (46-116); Bilirubin, Total 1.6 mg/dL (0.2-1.0); Blood Urea Nitrogen 7 mg/dL (9-23); Chloride 108 mmol/L (98-107); Glucose 111 mg/dL (74-106)
--- NOTE | 2025-04-30 11:01 | DVHPN2 ---
Progress Note Date Seen: Apr 30, 2025 Medical Necessity Reason Pt with a Central, PICC or Fol: No Objective vital signs Vital Sign Date Time Temp Pulse Resp B/P (MAP) Pulse Ox O2 Delivery O2 Flow Rate FiO2 04/30/25 08:56 97.7 68 17 130/70 (90) 96 97.7 04/29/25 20:00 Room Air* 0 21 Total Intake and Output 04/29/25 04/29/25 04/30/25 15:00 23:00 07:00 Intake Total 100 ml 1200 ml 900 ml Output Total 5 ml 15 ml Balance 95 ml 1185 ml 900 ml medications Current Medications Medications Dose Ordered Sig/Jose Route Start Time Stop Time Status Last Admin Dose Admin Pantoprazole Sodium 40 mg DAILY IV 04/28/25 10:00 04/30/25 10:02 40 MG Ondansetron HCl 4 mg Q4HP PRN IV 04/27/25 20:00 04/28/25 22:36 4 MG Morphine Sulfate 2 mg Q4HPRN PRN IV 04/27/25 20:00 04/29/25 22:55 2 MG Ceftriaxone Sodium 50 ml @ 100 mls/hr DAILY@09 IV 04/28/25 09:00 04/30/25 10:02 100 MLS/HR Metronidazole 100 ml @ 100 mls/hr Q8HR IV 04/27/25 22:00 04/30/25 05:57 100 MLS/HR Acetaminophen/ Hydrocodone Bitart 1 tab Q6HPRN PRN PO 04/28/25 12:45 UNV Acetaminophen 650 mg Q6HP PRN PO 04/28/25 12:45 UNV Sodium Chloride 1,000 ml @ 100 mls/hr Q10H IV 04/29/25 10:30 04/30/25 10:00 100 MLS/HR Oxycodone HCl 10 mg ONCE PRN PO 04/29/25 12:45 laboratory and microbiology Laboratory Tests 04/30/25 05:58 Test 04/30/25 05:58 Range/Units Serum Glucose 111 H 74-106 mg/dL Problem List/Assessment/Plan Problem List/Assessment/Plan 04/30/25 FEELS WELL, PASSING FLATUS, NO NAUSEA OR VOMITING, BILIRUBIN 1.6, EXPLAINED TO HER THAT I WOULD LIKE HER TO REMAIN TILL WE SEE BILIRUBIN RETURNING TO NORMAL. WILL ADVANCE DIET AND ACTIVITY, POSSIBLY DISCHARGE IN AM, ABDOMEN IS APPROPRIATELY TENDER, WOUNDS CLEAN AND WELL APPROXIMATED DRAINAGE SERO SANGUINEOUS,MINIMAL IN VOLUME Plan discussed with: Patient DIAN LUDWIG MD Apr 30, 2025 11:01
--- NOTE | 2025-04-30 16:52 | DVHPN2 ---
Subjective Better Tolerating diet Changes from previous H/P or p: Changes Objective Vitals Vital Signs Date Time Temp Pulse Resp B/P (MAP) Pulse Ox O2 Delivery O2 Flow Rate FiO2 04/30/25 16:39 97.9 60 17 121/76 (91) 97 97.9 04/30/25 08:00 Room Air* 0 21 Intake/Output Intake and Output 04/30/25 07:00 Intake Total 2200 ml Output Total 20 ml Balance 2180 ml Intake Oral 1900 ml IV Total 300 ml Output Drainage Total 20 ml # Voids 6 # Bowel Movements 1 General Appearance: Alert, Oriented X3 Lungs: Clear to auscultation, Normal air movement Cardiovascular: Regular rate, Normal S1, Normal S2 Abdomen: Normal bowel sounds, Soft, No tenderness Extremities: No edema Medications Current Medications Medications Dose Ordered Sig/Jose Route Start Time Stop Time Status Last Admin Dose Admin Pantoprazole Sodium 40 mg DAILY IV 04/28/25 10:00 04/30/25 10:02 40 MG Ondansetron HCl 4 mg Q4HP PRN IV 04/27/25 20:00 04/28/25 22:36 4 MG Morphine Sulfate 2 mg Q4HPRN PRN IV 04/27/25 20:00 04/29/25 22:55 2 MG Ceftriaxone Sodium 50 ml @ 100 mls/hr DAILY@09 IV 04/28/25 09:00 04/30/25 10:02 100 MLS/HR Metronidazole 100 ml @ 100 mls/hr Q8HR IV 04/27/25 22:00 04/30/25 13:12 100 MLS/HR Acetaminophen/ Hydrocodone Bitart 1 tab Q6HPRN PRN PO 04/28/25 12:45 UNV Acetaminophen 650 mg Q6HP PRN PO 04/28/25 12:45 UNV Sodium Chloride 1,000 ml @ 100 mls/hr Q10H IV 04/29/25 10:30 04/30/25 16:43 100 MLS/HR Oxycodone HCl 10 mg ONCE PRN PO 04/29/25 12:45 Laboratory Results Laboratory Tests 04/30/25 05:58 Chemistry Test 04/30/25 05:58 Albumin 4.2 g/dL (3.2-4.8) Calcium Level 9.7 mg/dL (8.7-10.4) Total Protein 6.7 g/dL (5.7-8.2) LFT Test 04/30/25 05:58 Alanine Aminotransferase (ALT) 497 U/L (7-40) H Alkaline Phosphatase 140 U/L (46-116) H Aspartate Amino Transferase (AST) 399 U/L (13-40) H Total Bilirubin 1.6 mg/dL (0.2-1.0) H Urinalysis Test 04/28/25 06:00 Urine Color Yellow (Yellow) Urine Clarity Turbid (Clear) H Urine pH 5.5 (5.0-9.0) Urine Specific [place] 1.019 (1.001-1.035) Urine Protein Negative (Negative) Urine Ketones Negative (Negative) Urine Blood Negative /uL (Negative) Urine Nitrite Negative (Negative) Urine Bilirubin Positive (Negative) Urine Urobilinogen 2 mg/dL (Negative) H Urine Leukocyte Esterase 3+ /uL (Negative) Urine RBC 3 /hpf (0 - 4) Urine Microscopic WBC 34 /HPF (0-5) H Urine Squamous Epithelial Cells Few /hpf (<5) Urine Bacteria Few /hpf (None Seen) H Urine Mucus Few (None Seen) Urine Glucose Normal mg/dL (Normal) Urine Test Negative (Negative) Microbiology Microbiology Date/Time Source Procedure Growth Status 04/29/25 11:52 Gallbladder Gram Stain - Final Resulted 04/29/25 11:52 Gallbladder Anaerobic Culture - Preliminary Resulted 04/29/25 11:52 Gallbladder Aerobic Culture - Preliminary Resulted Assessment/Plan Assessment/Plan Acute cholecystitis Cholelithiasis Morbid obesity s/p cholecystectomy Elevated LFTs PLAN: IV antibiotics: Rocephin and Flagyl IV fluids Pain control Monitor liver functions Advance diet as tolerated Plan discussed with: Patient Date of Service: Apr 30, 2025 Billing Provider: QUINTIN MON MD Common Visit Codes: [id number] INP/OBS CARE(HIGH) QUINTIN MON MD Apr 30, 2025 16:52
[2025-05-01 00:57] VITALS: BP 114/88; PULSE 72; RESP 16; TEMP 97.6; O2SAT 95
[2025-05-01 05:00] VITALS: BP 134/80; PULSE 69; RESP 17; TEMP 97.6; O2SAT 97
[2025-05-01 06:43] LABS: Hematocrit 35.2 % (36.0-46.0); Hemoglobin 12.1 g/dL (12.2-16.2); Mean Corpuscular Hemoglobin 29.6 pg (28.0-32.0); Mean Corpuscular Volume 86.3 fL (80.0-100.0); Nucleated Red Blood Cells % 0.1 %
[2025-05-01 06:51] LABS: Albumin 3.7 g/dL (3.2-4.8); Anion Gap 8 (5-15); BUN/Creatinine Ratio 8.5 (10.0-20.0); Carbon Dioxide 23 mmol/L (20-31); Glucose 94 mg/dL (74-106); Magnesium 1.9 mg/dL (1.6-2.6); Potassium 3.9 mmol/L (3.5-5.1); Sodium 141 mmol/L (136-145); Total Protein 6.1 g/dL (5.7-8.2)
[2025-05-01 06:54] LABS: Alanine Aminotransferase 608 U/L (7-40); Alkaline Phosphatase 149 U/L (46-116); Bilirubin, Total 2.5 mg/dL (0.2-1.0); Blood Urea Nitrogen 7 mg/dL (9-23); Calcium 8.5 mg/dL (8.7-10.4); Chloride 110 mmol/L (98-107)
[2025-05-01 09:00] VITALS: BP 138/82; PULSE 67; RESP 20; TEMP 97.9; O2SAT 97
--- NOTE | 2025-05-01 09:30 | DVHPN2 ---
Progress Note Date Seen: May 01, 2025 Medical Necessity Reason Pt with a Central, PICC or Fol: No Objective vital signs Vital Sign Date Time Temp Pulse Resp B/P (MAP) Pulse Ox O2 Delivery O2 Flow Rate FiO2 05/01/25 05:00 97.6 69 17 134/80 (98) 97 97.6 04/30/25 20:00 Room Air* 0 21 Total Intake and Output 04/30/25 04/30/25 05/01/25 15:00 23:00 07:00 Intake Total 2750 ml 1770 ml Balance 2750 ml 1770 ml medications Current Medications Medications Dose Ordered Sig/Jose Route Start Time Stop Time Status Last Admin Dose Admin Pantoprazole Sodium 40 mg DAILY IV 04/28/25 10:00 04/30/25 10:02 40 MG Ondansetron HCl 4 mg Q4HP PRN IV 04/27/25 20:00 05/01/25 03:21 4 MG Morphine Sulfate 2 mg Q4HPRN PRN IV 04/27/25 20:00 04/29/25 22:55 2 MG Ceftriaxone Sodium 50 ml @ 100 mls/hr DAILY@09 IV 04/28/25 09:00 04/30/25 10:02 100 MLS/HR Metronidazole 100 ml @ 100 mls/hr Q8HR IV 04/27/25 22:00 05/01/25 05:47 100 MLS/HR Acetaminophen/ Hydrocodone Bitart 1 tab Q6HPRN PRN PO 04/28/25 12:45 UNV Acetaminophen 650 mg Q6HP PRN PO 04/28/25 12:45 UNV Sodium Chloride 1,000 ml @ 100 mls/hr Q10H IV 04/29/25 10:30 05/01/25 05:49 100 MLS/HR Oxycodone HCl 10 mg ONCE PRN PO 04/29/25 12:45 laboratory and microbiology Laboratory Tests 05/01/25 05:51 Test 05/01/25 05:51 Range/Units Serum Glucose 94 74-106 mg/dL Problem List/Assessment/Plan Problem List/Assessment/Plan 04/30/25 FEELS WELL, PASSING FLATUS, NO NAUSEA OR VOMITING, BILIRUBIN 1.6, EXPLAINED TO HER THAT I WOULD LIKE HER TO REMAIN TILL WE SEE BILIRUBIN RETURNING TO NORMAL. WILL ADVANCE DIET AND ACTIVITY, POSSIBLY DISCHARGE IN AM, ABDOMEN IS APPROPRIATELY TENDER, WOUNDS CLEAN AND WELL APPROXIMATED DRAINAGE SERO SANGUINEOUS,MINIMAL IN VOLUME 05/01/25 feels a "little worse" today than yesterday, more nausea, abdomen soft, non distended, appropriately tender, wounds clean and well approximated, drainage non bilious, Serum Bilirubin and LFT's are higher today than yesterday, MRCP ordered, explained to patient she may have a small stone in the common duct/ Plan discussed with: Patient, Other DIAN LUDWIG MD May 01, 2025 09:30
--- NOTE | 2025-05-01 09:35 | DVH ---
208 CLINICAL DATA: 1.5 COMPARISON: 20 TECHNIQUE: MR imaging of the abdomen was performed using routine protocol. The following sequences w ere obtained: Three plane localizer Coronal T2 HASTE large FOV/ small FOV Axial T1 Harvey in and out of phase Axial T2 HASTE and STIR SagittalT2 Fat Sat Precontrast 3-D FLASH Postcontrast 3-D FLASH: Arterial, venous and delayed phases. Coronal MRCP 3D FINDINGS: Lung bases: Limited view of the lung bases demonstrates minimal atelectasis. No pleural effusion is seen. Abdomen: There are 2 subtle lucencies seen in the mid common bile duct, coronal image 21, series 2. Subtle dharmesh tral lucency seen in the common bile duct on axial image 26, series 3. Findings may reflect subtle de bris rather than discrete choledocholithiasis. No common bile duct dilatation. Mildly increased signa l seen in the right upper quadrant in the gallbladder fossa. Gallbladder not discretely identified. No splenomegaly. No hepatomegaly. No obstructive uropathy. No aortic aneurysm. No retroperitoneal ad enopathy. No bowel obstruction. No ascites. IMPRESSION: 1. Subtle lucencies seen in the mid common bile duct of unknown etiology, coronal image 21, series 2. See discussion above. No pancreatitis.
--- NOTE | 2025-05-01 10:21 | DVHPN2 ---
Subjective Better Tolerating diet But her liver enzymes are getting more elevated with a total bilirubin of 2.5 and AST of 522 and ALT of 608 She just had an MRCP which showed possible common bile duct stone Changes from previous H/P or p: Changes Objective Vitals Vital Signs Date Time Temp Pulse Resp B/P (MAP) Pulse Ox O2 Delivery O2 Flow Rate FiO2 05/01/25 09:00 97.9 67 20 138/82 (100) 97 97.9 04/30/25 20:00 Room Air* 0 21 Intake/Output Intake and Output 05/01/25 06:59 Intake Total 4520 ml Balance 4520 ml Intake Oral 2620 ml IV Total 1900 ml # Voids 10 # Bowel Movements 3 General Appearance: Alert, Oriented X3 Lungs: Clear to auscultation, Normal air movement Cardiovascular: Regular rate, Normal S1, Normal S2 Abdomen: Normal bowel sounds, Soft, No tenderness Extremities: No edema Medications Current Medications Medications Dose Ordered Sig/Jose Route Start Time Stop Time Status Last Admin Dose Admin Pantoprazole Sodium 40 mg DAILY IV 04/28/25 10:00 04/30/25 10:02 40 MG Ondansetron HCl 4 mg Q4HP PRN IV 04/27/25 20:00 05/01/25 03:21 4 MG Morphine Sulfate 2 mg Q4HPRN PRN IV 04/27/25 20:00 04/29/25 22:55 2 MG Ceftriaxone Sodium 50 ml @ 100 mls/hr DAILY@09 IV 04/28/25 09:00 04/30/25 10:02 100 MLS/HR Metronidazole 100 ml @ 100 mls/hr Q8HR IV 04/27/25 22:00 05/01/25 05:47 100 MLS/HR Acetaminophen/ Hydrocodone Bitart 1 tab Q6HPRN PRN PO 04/28/25 12:45 UNV Acetaminophen 650 mg Q6HP PRN PO 04/28/25 12:45 UNV Sodium Chloride 1,000 ml @ 100 mls/hr Q10H IV 04/29/25 10:30 05/01/25 05:49 100 MLS/HR Oxycodone HCl 10 mg ONCE PRN PO 04/29/25 12:45 Laboratory Results Laboratory Tests 05/01/25 05:51 Chemistry Test 05/01/25 05:51 Albumin 3.7 g/dL (3.2-4.8) Calcium Level 8.5 mg/dL (8.7-10.4) L Magnesium Level 1.9 mg/dL (1.6-2.6) Total Protein 6.1 g/dL (5.7-8.2) LFT Test 05/01/25 05:51 Alanine Aminotransferase (ALT) 608 U/L (7-40) H Alkaline Phosphatase 149 U/L (46-116) H Aspartate Amino Transferase (AST) 522 U/L (13-40) H Total Bilirubin 2.5 mg/dL (0.2-1.0) H Urinalysis Test 04/28/25 06:00 Urine Color Yellow (Yellow) Urine Clarity Turbid (Clear) H Urine pH 5.5 (5.0-9.0) Urine Specific [place] 1.019 (1.001-1.035) Urine Protein Negative (Negative) Urine Ketones Negative (Negative) Urine Blood Negative /uL (Negative) Urine Nitrite Negative (Negative) Urine Bilirubin Positive (Negative) Urine Urobilinogen 2 mg/dL (Negative) H Urine Leukocyte Esterase 3+ /uL (Negative) Urine RBC 3 /hpf (0 - 4) Urine Microscopic WBC 34 /HPF (0-5) H Urine Squamous Epithelial Cells Few /hpf (<5) Urine Bacteria Few /hpf (None Seen) H Urine Mucus Few (None Seen) Urine Glucose Normal mg/dL (Normal) Urine Test Negative (Negative) Microbiology Microbiology Date/Time Source Procedure Growth Status 04/29/25 11:52 Gallbladder Gram Stain - Final Resulted 04/29/25 11:52 Gallbladder Anaerobic Culture - Preliminary Resulted 04/29/25 11:52 Gallbladder Aerobic Culture - Preliminary Resulted Assessment/Plan Assessment/Plan Acute cholecystitis Cholelithiasis Morbid obesity s/p cholecystectomy Elevated LFTs PLAN: IV antibiotics: Rocephin and Flagyl IV fluids Pain control Monitor liver functions Advance diet as tolerated 05/01/2025: Elevated liver function tests Possible biliary obstruction due to choledocholithiasis Consult GI regarding the continuous elevation in the liver function tests Dr. Mayorga is following the patient The patient will likely need to be transferred to higher level of care for ERCP if that is the recommendation of surgery and GI Plan discussed with: Patient My Orders Orders - QUINTIN MON MD Procedure Category Date Status Time May Shower PHILIPPE 04/30/25 In Process 16:54 Initiate Vte PHILIPPE 05/01/25 In Process Prophylaxis 08:54 * Gi [facility] [employer] CONS 05/01/25 Transmitted 09:20 Date of Service: May 01, 2025 Billing Provider: QUINTIN MON MD Common Visit Codes: [id number] INP/OBS CARE(HIGH) QUINTIN MON MD May 01, 2025 10:21
[2025-05-01 12:57] VITALS: BP 127/75; PULSE 69; RESP 20; TEMP 98; O2SAT 96
[2025-05-01 17:25] VITALS: BP 113/61; PULSE 60; RESP 20; TEMP 97.8; O2SAT 97
[2025-05-01 21:00] VITALS: BP 131/85; PULSE 66; RESP 17; TEMP 97.5; O2SAT 97
[2025-05-02 00:59] VITALS: BP 133/84; PULSE 63; RESP 17; TEMP 98; O2SAT 98
[2025-05-02 05:00] VITALS: BP 136/85; PULSE 61; RESP 17; TEMP 97.6; O2SAT 100
[2025-05-02 05:00] LABS: Hematocrit 36.5 % (36.0-46.0); Hemoglobin 12.3 g/dL (12.2-16.2); Mean Corpuscular Hemoglobin 29.4 pg (28.0-32.0); Mean Corpuscular Volume 87.0 fL (80.0-100.0); Nucleated Red Blood Cells % 0.0 %
[2025-05-02 05:17] LABS: Albumin 3.7 g/dL (3.2-4.8); Anion Gap 7 (5-15); BUN/Creatinine Ratio 11.9 (10.0-20.0); Blood Urea Nitrogen 10 mg/dL (9-23); Calcium 8.8 mg/dL (8.7-10.4); Carbon Dioxide 26 mmol/L (20-31); Glucose 96 mg/dL (74-106); Magnesium 2.0 mg/dL (1.6-2.6); Potassium 4.4 mmol/L (3.5-5.1); Sodium 142 mmol/L (136-145); Total Protein 5.8 g/dL (5.7-8.2)
[2025-05-02 05:19] LABS: Bilirubin, Total 0.7 mg/dL (0.2-1.0)
[2025-05-02 05:31] LABS: Alanine Aminotransferase 487 U/L (7-40); Alkaline Phosphatase 149 U/L (46-116); Chloride 109 mmol/L (98-107)
--- NOTE | 2025-05-02 10:35 | DVHPN2 ---
Progress Note Date Seen: May 02, 2025 Medical Necessity Reason Pt with a Central, PICC or Fol: No Objective vital signs Vital Sign Date Time Temp Pulse Resp B/P (MAP) Pulse Ox O2 Delivery O2 Flow Rate FiO2 05/02/25 07:35 Room Air* 0 21 05/02/25 05:00 97.6 61 17 136/85 (102) 100 97.6 Total Intake and Output 05/01/25 05/01/25 05/02/25 15:00 23:00 07:00 Intake Total 50 ml 600 ml 1000 ml Balance 50 ml 600 ml 1000 ml medications Current Medications Medications Dose Ordered Sig/Jose Route Start Time Stop Time Status Last Admin Dose Admin Pantoprazole Sodium 40 mg DAILY IV 04/28/25 10:00 05/02/25 08:53 40 MG Ondansetron HCl 4 mg Q4HP PRN IV 04/27/25 20:00 05/01/25 03:21 4 MG Morphine Sulfate 2 mg Q4HPRN PRN IV 04/27/25 20:00 04/29/25 22:55 2 MG Ceftriaxone Sodium 50 ml @ 100 mls/hr DAILY@09 IV 04/28/25 09:00 05/02/25 08:53 100 MLS/HR Metronidazole 100 ml @ 100 mls/hr Q8HR IV 04/27/25 22:00 05/02/25 05:14 100 MLS/HR Acetaminophen/ Hydrocodone Bitart 1 tab Q6HPRN PRN PO 04/28/25 12:45 UNV Acetaminophen 650 mg Q6HP PRN PO 04/28/25 12:45 UNV Sodium Chloride 1,000 ml @ 100 mls/hr Q10H IV 04/29/25 10:30 05/02/25 08:53 100 MLS/HR Oxycodone HCl 10 mg ONCE PRN PO 04/29/25 12:45 laboratory and microbiology Laboratory Tests 05/02/25 04:30 Test 05/02/25 04:30 Range/Units Serum Glucose 96 74-106 mg/dL Problem List/Assessment/Plan Problem List/Assessment/Plan 04/30/25 FEELS WELL, PASSING FLATUS, NO NAUSEA OR VOMITING, BILIRUBIN 1.6, EXPLAINED TO HER THAT I WOULD LIKE HER TO REMAIN TILL WE SEE BILIRUBIN RETURNING TO NORMAL. WILL ADVANCE DIET AND ACTIVITY, POSSIBLY DISCHARGE IN AM, ABDOMEN IS APPROPRIATELY TENDER, WOUNDS CLEAN AND WELL APPROXIMATED DRAINAGE SERO SANGUINEOUS,MINIMAL IN VOLUME 05/01/25 feels a "little worse" today than yesterday, more nausea, abdomen soft, non distended, appropriately tender, wounds clean and well approximated, drainage non bilious, Serum Bilirubin and LFT's are higher today than yesterday, MRCP ordered, explained to patient she may have a small stone in the common duct/ 05/02/25 feels well, labs markedly improved, she is cleared to be discharged i need to see her in two weeks, teach care of NAINA drain Plan discussed with: Patient Dietary Evaluation Review Recommendations by RD: Dietary education by RD Comments: 1) Encourage optimal PO intake 2) Advance to low-fat diet when medically feasible 3) Refer to outpatient RD for weight management 4) Follow-up with gastroenterology 5) Continue to monitor I&O, labs, and skin integrity Expected Outcomes/Goals: 1) appetite and labs to improve 2) diet to advance 3) gradual wt loss 4) f/u in 3-5 days DIAN LUDWIG MD May 02, 2025 10:35
--- NOTE | 2025-05-02 10:43 | DVHPN2 ---
Subjective Doing well No abdominal pain No nausea no vomiting Liver functions have improved with a bilirubin now of 0.7 Changes from previous H/P or p: Changes Objective Vitals Vital Signs Date Time Temp Pulse Resp B/P (MAP) Pulse Ox O2 Delivery O2 Flow Rate FiO2 05/02/25 07:35 Room Air* 0 21 05/02/25 05:00 97.6 61 17 136/85 (102) 100 97.6 Intake/Output Intake and Output 05/02/25 07:00 Intake Total 1650 ml Balance 1650 ml Intake Oral 1300 ml IV Total 350 ml # Voids 6 # Bowel Movements 3 General Appearance: Alert, Oriented X3 Lungs: Clear to auscultation, Normal air movement Cardiovascular: Regular rate, Normal S1, Normal S2 Abdomen: Normal bowel sounds, Soft, No tenderness Extremities: No edema Medications Current Medications Medications Dose Ordered Sig/Jose Route Start Time Stop Time Status Last Admin Dose Admin Pantoprazole Sodium 40 mg DAILY IV 04/28/25 10:00 05/02/25 08:53 40 MG Ondansetron HCl 4 mg Q4HP PRN IV 04/27/25 20:00 05/01/25 03:21 4 MG Morphine Sulfate 2 mg Q4HPRN PRN IV 04/27/25 20:00 04/29/25 22:55 2 MG Ceftriaxone Sodium 50 ml @ 100 mls/hr DAILY@09 IV 04/28/25 09:00 05/02/25 08:53 100 MLS/HR Metronidazole 100 ml @ 100 mls/hr Q8HR IV 04/27/25 22:00 05/02/25 05:14 100 MLS/HR Acetaminophen/ Hydrocodone Bitart 1 tab Q6HPRN PRN PO 04/28/25 12:45 UNV Acetaminophen 650 mg Q6HP PRN PO 04/28/25 12:45 UNV Sodium Chloride 1,000 ml @ 100 mls/hr Q10H IV 04/29/25 10:30 05/02/25 08:53 100 MLS/HR Oxycodone HCl 10 mg ONCE PRN PO 04/29/25 12:45 Laboratory Results Laboratory Tests 05/02/25 04:30 Chemistry Test 05/02/25 04:30 Albumin 3.7 g/dL (3.2-4.8) Calcium Level 8.8 mg/dL (8.7-10.4) Magnesium Level 2.0 mg/dL (1.6-2.6) Total Protein 5.8 g/dL (5.7-8.2) LFT Test 05/02/25 04:30 Alanine Aminotransferase (ALT) 487 U/L (7-40) H Alkaline Phosphatase 149 U/L (46-116) H Aspartate Amino Transferase (AST) 171 U/L (13-40) H Total Bilirubin 0.7 mg/dL (0.2-1.0) Urinalysis Test 04/28/25 06:00 Urine Color Yellow (Yellow) Urine Clarity Turbid (Clear) H Urine pH 5.5 (5.0-9.0) Urine Specific [place] 1.019 (1.001-1.035) Urine Protein Negative (Negative) Urine Ketones Negative (Negative) Urine Blood Negative /uL (Negative) Urine Nitrite Negative (Negative) Urine Bilirubin Positive (Negative) Urine Urobilinogen 2 mg/dL (Negative) H Urine Leukocyte Esterase 3+ /uL (Negative) Urine RBC 3 /hpf (0 - 4) Urine Microscopic WBC 34 /HPF (0-5) H Urine Squamous Epithelial Cells Few /hpf (<5) Urine Bacteria Few /hpf (None Seen) H Urine Mucus Few (None Seen) Urine Glucose Normal mg/dL (Normal) Urine Test Negative (Negative) Microbiology Microbiology Date/Time Source Procedure Growth Status 04/29/25 11:52 Gallbladder Gram Stain - Final Resulted 04/29/25 11:52 Gallbladder Anaerobic Culture - Preliminary Resulted 04/29/25 11:52 Gallbladder Aerobic Culture - Preliminary Resulted Assessment/Plan Assessment/Plan Acute cholecystitis Cholelithiasis Morbid obesity s/p cholecystectomy Elevated LFTs PLAN: IV antibiotics: Rocephin and Flagyl IV fluids Pain control Monitor liver functions Advance diet as tolerated 05/01/2025: Elevated liver function tests Possible biliary obstruction due to choledocholithiasis Consult GI regarding the continuous elevation in the liver function tests Dr. Mayorga is following the patient The patient will likely need to be transferred to higher level of care for ERCP if that is the recommendation of surgery and GI 05/02/2025: Transient biliary obstruction: Resolved, probably passed a common bile duct stone Choledocholithiasis, resolved Status post cholecystectomy Continue soft diet Monitor liver function again in the hospital 1 more day and discharge planning for tomorrow if the bilirubin and liver enzymes continue to go down Plan discussed with: Patient Date of Service: May 02, 2025 Billing Provider: QUINTIN MON MD Common Visit Codes: [id number] INP/OBS CARE(HIGH) QUINTIN MON MD May 02, 2025 10:43
[2025-05-02 11:06] VITALS: BP 126/80; PULSE 72; RESP 19; TEMP 97.5; O2SAT 95
[2025-05-02 13:00] VITALS: BP 143/85; PULSE 66; RESP 20; TEMP 97.3; O2SAT 98
[2025-05-02 16:30] VITALS: BP 132/88; PULSE 74; RESP 18; TEMP 97.1; O2SAT 97
[2025-05-02 21:00] VITALS: BP 131/62; PULSE 65; RESP 16; TEMP 97.5; O2SAT 97
[2025-05-03 05:00] VITALS: BP 134/77; PULSE 71; RESP 16; TEMP 98.1; O2SAT 99
[2025-05-03 08:00] VITALS: PULSE 65; RESP 17
[2025-05-03 08:56] VITALS: BP 129/87; PULSE 80; RESP 17; TEMP 98; O2SAT 97
--- NOTE | 2025-05-03 09:26 | DVHPN2 ---
Subjective Date Seen: May 03, 2025 Post op day Post op day: 4 Patient reports: No new complaints General: Normal HNT: Normal Cardiovascular: Normal Respiratory: Normal Gastrointestinal: Normal Genitourinary: Normal Musculoskeletal: Normal Neurological: Normal Objective Vitals Vital Sign Date Time Temp Pulse Resp B/P (MAP) Pulse Ox O2 Delivery O2 Flow Rate FiO2 05/03/25 08:56 98.0 80 17 129/87 (101) 97 98.0 05/03/25 08:00 Room Air* 0 21 Total Intake and Output 05/02/25 05/02/25 05/03/25 15:00 23:00 07:00 Intake Total 290 ml 2050 ml 1725 ml Output Total 50 ml Balance 240 ml 2050 ml 1725 ml Medications Current Medications Medications Dose Ordered Sig/Jose Route Start Time Stop Time Status Last Admin Dose Admin Pantoprazole Sodium 40 mg DAILY IV 04/28/25 10:00 05/03/25 08:55 40 MG Ondansetron HCl 4 mg Q4HP PRN IV 04/27/25 20:00 05/01/25 03:21 4 MG Morphine Sulfate 2 mg Q4HPRN PRN IV 04/27/25 20:00 04/29/25 22:55 2 MG Ceftriaxone Sodium 50 ml @ 100 mls/hr DAILY@09 IV 04/28/25 09:00 05/03/25 08:55 100 MLS/HR Metronidazole 100 ml @ 100 mls/hr Q8HR IV 04/27/25 22:00 05/03/25 06:01 100 MLS/HR Acetaminophen/ Hydrocodone Bitart 1 tab Q6HPRN PRN PO 04/28/25 12:45 UNV Acetaminophen 650 mg Q6HP PRN PO 04/28/25 12:45 UNV Sodium Chloride 1,000 ml @ 100 mls/hr Q10H IV 04/29/25 10:30 05/03/25 04:41 100 MLS/HR Oxycodone HCl 10 mg ONCE PRN PO 04/29/25 12:45 General: Normal, Well developed, Well nourished Head/Eyes: Normal ENT: Normal Neck: Normal Cardiovascular: Normal Abdominal: Normal, Soft Skin: Normal, Normal inspection Labs and Microbiology Laboratory Tests 05/02/25 04:30 Test 05/02/25 04:30 Range/Units Serum Glucose 96 74-106 mg/dL Ass/Plan Problem List 04/30/25 FEELS WELL, PASSING FLATUS, NO NAUSEA OR VOMITING, BILIRUBIN 1.6, EXPLAINED TO HER THAT I WOULD LIKE HER TO REMAIN TILL WE SEE BILIRUBIN RETURNING TO NORMAL. WILL ADVANCE DIET AND ACTIVITY, POSSIBLY DISCHARGE IN AM, ABDOMEN IS APPROPRIATELY TENDER, WOUNDS CLEAN AND WELL APPROXIMATED DRAINAGE SERO SANGUINEOUS,MINIMAL IN VOLUME 05/01/25 feels a "little worse" today than yesterday, more nausea, abdomen soft, non distended, appropriately tender, wounds clean and well approximated, drainage non bilious, Serum Bilirubin and LFT's are higher today than yesterday, MRCP ordered, explained to patient she may have a small stone in the common duct/ 05/02/25 feels well, labs markedly improved, she is cleared to be discharged i need to see her in two weeks, teach care of NAINA drain Problems(with codes): (1) Acute cholecystitis Assessment/Plan s/p laparoscopic cholecystectomy POD # 4 no new complaints feeling well l;abs reviewed tolerating diet, denies nausea and vomiting bowel activity NAINA drain serous fluid 10cc Plan: ok to discharge per surgery point of view follow up in clinic in one week for possible drain removal Plan discussed with patient, Dr. Mark Visit Coding Surgery Date of Service if different f: May 03, 2025 Billing Provider: DIAN MARK MD Surgery Visit Codes: [id number] INP/OBS CARE(HIGH) JENNIFER SIMPSON NP May 03, 2025 09:26
--- NOTE | 2025-05-03 11:16 | DVHDS2 ---
Discharge Summary Date of Admission Apr 27, 2025 at 19:56 Date of Discharge: May 03, 2025 Labs/Diagnostic Data: Laboratory Results Test 05/03/25 10:22 05/02/25 04:30 04/28/25 06:00 04/28/25 05:00 Eosinophils (%) (Auto) 3.7 % (0.0-7.0) Eosinophils # (Auto) 0.3 10 ^3/uL (0-0.8) Basophils # (Auto) 0.1 10 ^3/uL (0-0.2) Nucleated Red Blood Cells 0.0 % Urine Color Yellow (Yellow) Urine Clarity Turbid (Clear) Urine pH 5.5 (5.0-9.0) Urine Specific [place] 1.019 (1.001-1.035) Urine Protein Negative (Negative) Urine Ketones Negative (Negative) Urine Blood Negative /uL (Negative) Urine Nitrite Negative (Negative) Urine Bilirubin Positive (Negative) Urine Urobilinogen 2 mg/dL (Negative) Urine Leukocyte Esterase 3+ /uL (Negative) Urine RBC 3 /hpf (0 - 4) Urine Microscopic WBC 34 /HPF (0-5) Urine Squamous Epithelial Cells Few /hpf (<5) Urine Bacteria Few /hpf (None Seen) Urine Mucus Few (None Seen) Urine Glucose Normal mg/dL (Normal) Urine Test Negative (Negative) Amylase Level 39 U/L (30-118) Test 04/27/25 18:08 Prothrombin Time 10.2 sec (9.3-11.8) Prothrombin Time INR 0.96 (0.9-1.15) Activated Partial Thromboplast Time 25.6 SEC (24.5-34.5) Lipase 41 U/L (12-53) Brief Hx & Hospital Course: see dictated note Condition at Discharge: Good Final Diagnosis/Problems List gallstones Discharge Disposition: Home Discharge Instruct/Medications Diet: Cardiac 2g Na,low cholest Activity: No Restrictions, As Tolerated Follow Up/Referral: schedule appt with dr Mark in 1 wk Medications: resume home meds script to pharmacy dc after labs are back Discharge Statement: "Patient was advised to return to the ER or call 911 if any headaches, dizziness, shortness of breath, chest pain, abdominal pain, bleeding, fevers, or worsening of medical condition. Patient was counseled about treatment plan, medications, possible side effects, patientverbalized understanding. All questions were answered to the best of my ability. This discharge took greater then 30 minutes in planning, reviewing documentation, counseling the patient, and discussing with other team members." ASSESSMENT ASSESSMENT Assessment gallstones Date of Service: May 03, 2025 Billing Provider: GURMEET BERNSTEIN MD Common Visit Codes: [id number] DISCH DAY >30min GURMEET BERNSTEIN MD May 03, 2025 11:16
[2025-05-03] MEDS ORDERED: CEPH500C PO (11:17)
[2025-05-03 11:18] LABS: Hematocrit 38.2 % (36.0-46.0); Hemoglobin 12.8 g/dL (12.2-16.2); Mean Corpuscular Hemoglobin 29.0 pg (28.0-32.0); Mean Corpuscular Volume 86.3 fL (80.0-100.0); Nucleated Red Blood Cells % 0.0 %
--- NOTE | 2025-05-03 11:27 | DVHDS ---
DATE OF DISCHARGE: 05/03/2025 HISTORY OF PRESENT ILLNESS: The patient is a 34-year-old lady who was admitted with complaints of abdominal pain. HOSPITAL COURSE: The patient had a gallbladder ultrasound that showed evidence of cholelithiasis with acute cholecystitis. The patient underwent laparoscopic cholecystectomy on 04/29/2025. Postprocedure, the patient had elevation of liver function tests. The patient had an MRCP that showed subtle lucencies in the mid common bile duct. The patient's liver functions have since improved. She is currently pain-free and will be discharged after today's laboratory data to resume her home medications as well as to be on Keflex 500 mg t.i.d. for 7 days. She will follow up with Dr. Mark in the coming week. FINAL DIAGNOSES: Therefore, * Cholelithiasis with acute cholecystitis, status post laparoscopic cholecystectomy. * Questionable CBD stones. * UTI. * Morbid obesity. Time spent in discharge planning and review of plan with the patient and nursing was 37 minutes. MD LEXI Sales/MACKENZIE TID: [id number] RECEIPT: [id number]
[2025-05-03 11:36] LABS: Albumin 4.0 g/dL (3.2-4.8); Anion Gap 8 (5-15); BUN/Creatinine Ratio 11.1 (10.0-20.0); Calcium 9.1 mg/dL (8.7-10.4); Carbon Dioxide 27 mmol/L (20-31); Chloride 105 mmol/L (98-107); Glucose 106 mg/dL (74-106); Magnesium 2.0 mg/dL (1.6-2.6); Potassium 3.8 mmol/L (3.5-5.1); Sodium 140 mmol/L (136-145); Total Protein 6.5 g/dL (5.7-8.2)
[2025-05-03 11:37] LABS: Alanine Aminotransferase 338 U/L (7-40); Alkaline Phosphatase 128 U/L (46-116); Bilirubin, Total 0.5 mg/dL (0.2-1.0); Blood Urea Nitrogen 9 mg/dL (9-23)
[2025-05-03 12:21] VITALS: BP 112/72; PULSE 72; RESP 18; TEMP 98.6; O2SAT 96
== END 2025-05-03 13:30 | disposition home or self-care (01) | DRG 263 ==
LOC: ER 17:31 → OVERFLOW 19:56 → CENTRAL 04-28 17:55
PROVIDERS: ADMIT Internal Medicine; ATTEND Internal Medicine
PROC: 0FT44ZZ Resection of Gallbladder, Percutaneous Endoscopic Approach (ICD-10-PCS; principal; 2025-04-29 11:14)
DX: K80.62 Calculus of gallbladder and bile duct with acute cholecystitis without obstruction (principal); E66.01 Morbid (severe) obesity due to excess calories; N39.0 Urinary tract infection, site not specified; K66.0 Peritoneal adhesions (postprocedural) (postinfection); Z88.6 Allergy status to analgesic agent; Z88.5 Allergy status to narcotic agent; Z88.0 Allergy status to penicillin; Z85.41 Personal history of malignant neoplasm of cervix uteri; Z80.1 Family history of malignant neoplasm of trachea, bronchus and lung; Z80.0 Family history of malignant neoplasm of digestive organs; Z83.3 Family history of diabetes mellitus; Z68.41 Body mass index [BMI] 40.0-44.9, adult; Z79.899 Other long term (current) drug therapy
CPT/HCPCS: 36415; 71045; 74181; 76705; 80048; 80053; 81001; 81025; 82150; 82247; 83690; 83735; 85025; 85610; 85730; 86850; 86900; 86901; 87070; 87075; 87205; 93005; 96365; 96375; G0378; J0131; J0690; J1100; J1885; J2003; J2405; J2470; J2704; J3490